=== PATIENT | female | born 2000 | race Caucasian/White ===

== ENCOUNTER → 2021-01-08 10:44 | Outpatient (CLI) | payer BC, SELFPAY ==
[2021-01-08 21:58] LABS: SARS-CoV-2 RNA PCR Negative
== END ==
PROVIDERS: PCP Family Medicine; Visit Provider Family Medicine
DX: J02.9 Acute pharyngitis, unspecified (principal); Z20.828 Contact with and (suspected) exposure to other viral communicable diseases
CPT/HCPCS: C9803; U0003; U0005